=== PATIENT | male | born 1995 | race Hispanic/Latino ===

== ENCOUNTER 2021-07-26 19:23 | Emergency (ER) | payer OTHER ==
[2021-07-26 19:46] LABS: Actual Bicarbonate (HCO3v) 24 mEq/L (22-28); Base Excess -0.7 mEq/L (-2.0 to +3.0); Calcium, Ionized (venous) 1.14 mmol/L (1.16-1.32); Chloride (VBG) 92 mmol/L (98-106); Potassium (VBG) 4.28 mmol/L (3.70-5.30); Puncture Site Other Site; Sodium 126.4 mmol/L (133-146); pH (venous) 7.39 (7.32-7.43)
[2021-07-26 19:50] LABS: #Eosinphils 0.1 10x3/uL (0.0-0.5); #Monocytes 0.6 10x3/uL (0.0-1.1); #Neutrophils 10.3 10x3/uL (1.5-8.4); %Basophils 0.2 % (0.0-2.0); %Eosinophils 0.6 % (0.0-6.0); %Lymphocytes 17.3 % (18.0-47.0); %Monocytes 4.6 % (0.0-10.0); %Neutrophils 76.8 % (40.0-75.0); Hemoglobin 13.9 g/dL (13.5-17.5); Mean Corpuscular HGB CONC 34.4 g/dL (32.0-36.0); Mean Corpuscular Hemoglobin 30.6 pg (27.0-33.0); Platelet Count 296 10x3/uL (150-450); RBC Distribution Width 11.4 % (11.5-14.5); Red Blood Cell (RBC) Count 4.54 10x6/uL (4.32-5.72); White Blood Cell (WBC) Count 13.4 10x3/uL (3.5-10.5)
[2021-07-26 20:01] LABS: ALT (SGPT) 25 U/L (8-55); AST (SGOT) 26 U/L (5-34); Alkaline Phosphatase 85 U/L (40-110); Anion Gap 18 mmol/L (10-20); BUN (Urea Nitrogen) 21 mg/dL (8.9-20.6); Bilirubin, Total 0.4 mg/dL (0.2-1.2); Calc. Creatinine Clearance 0 mL/min (70-130); Calcium 8.9 mg/dL (7.8-10.44); Carbon Dioxide 21 mmol/L (22-29); Chloride 93 mmol/L (98-107); Globulin 2.7 g/dL (2.4-3.5); Glucose 370 mg/dL (70-105); Potassium 4.3 mmol/L (3.5-5.1); Protein, Total 6.7 g/dL (6.0-8.3); Sodium 128 mmol/L (136-145)
[2021-07-26] MEDS ORDERED: Insulin Regular 300 UNITS/3 ML VIAL ONE (20:45)
== END 2021-07-26 21:44 | disposition home or self-care (01) ==
LOC: CSHERS 19:23
DX: E10.65 Type 1 diabetes mellitus with hyperglycemia (principal); E78.5 Hyperlipidemia, unspecified; E03.9 Hypothyroidism, unspecified; Z79.899 Other long term (current) drug therapy; Z79.4 Long term (current) use of insulin
CPT/HCPCS: 36416; 80053; 82010; 82805; 85025; 96374; J1815